=== PATIENT | female | born 1955 | race Caucasian/White ===

== ENCOUNTER → 2017-09-22 | Outpatient (CLI) | payer OTHER ==
--- NOTE | 2017-09-22 17:26 | RAD ---
DATE: 09/22/2017 EXAM: MAMMO [place] SCREENING BILATERAL HISTORY: Screening Mammogram COMPARISON: Screening mammogram 2 03/13/2016, 10/03/2014, 10/01/2013 This study was interpreted with the benefit of Computerized Aided Detection (CAD). The breast parenchyma is heterogeneously dense, which could reduce sensitivity of mammography. Breast parenchyma level C. FINDINGS: Bilateral digital 2-D and 3-D tomosynthesis CC and MLO views. Asymmetry in the retroareolar right breast only seen on the MLO view. No suspicious mass, calcification or architectural distortion in the left breast. Impression: Retroareolar right breast asymmetry only seen on MLO view. Spot compression MLO and fall field ML views are recommended and possible same-day ultrasound, if needed. BI-RADS CATEGORY: 0 INCOMPLETE: NEEDS ADDITIONAL IMAGING EVALUATION AND/OR PRIOR MAMMOGRAMS FOR COMPARISON. RECOMMENDED FOLLOW-UP: ADD ADDITIONAL IMAGING PQRS compliance statement: Patient information was entered into a reminder system with a target due date for the next mammogram. Mammography is a sensitive method for finding small breast cancers, but it does not detect them all and is not a substitute for careful clinical examination. A negative mammogram does not negate a clinically suspicious finding and should not result in delay in biopsying a clinically suspicious abnormality. "Our facility is accredited by the [employer] Mammography [employer]."
== END | disposition home or self-care (01) ==
LOC: MAMMO 14:11
PROVIDERS: ATTEND Physician Assistant Medical
DX: Z12.31 Encounter for screening mammogram for malignant neoplasm of breast (principal)
CPT/HCPCS: 77063; 77067

== ENCOUNTER → 2017-10-01 | Outpatient (CLI) | payer OTHER ==
--- NOTE | 2017-10-01 13:59 | RAD ---
EXAM: DIGITAL DIAGNOSTIC RT HISTORY: Abnormal screening 3-D mammogram. COMPARISON: 3-D mammogram 09/22/2017 and 10/18/2015. Bilateral 2-D mammogram 10/03/2014. This study was interpreted with the benefit of Computerized Aided Detection (CAD). FINDINGS: Spot compression view of the right breast in the MLO projection was obtained. True lateral view of the right breast was obtained. No persistent suspicious abnormality is seen. Breast parenchyma appears compressible. The appearance of the breast is similar to previous mammograms. IMPRESSION: No persistent abnormality. Recommend return to annual screening. BI-RADS CATEGORY: 1 NEGATIVE RECOMMENDED FOLLOW-UP: 12M 12 MONTH FOLLOW-UP PQRS compliance statement: Patient information was entered into a reminder system with a target due date for the next mammogram. Mammography is a sensitive method for finding small breast cancers, but it does not detect them all and is not a substitute for careful clinical examination. A negative mammogram does not negate a clinically suspicious finding and should not result in delay in biopsying a clinically suspicious abnormality. "Our facility is accredited by the [employer] Mammography [employer]."
== END | disposition home or self-care (01) ==
LOC: MAMMO 13:14
PROVIDERS: ATTEND Physician Assistant Medical
DX: R92.8 Other abnormal and inconclusive findings on diagnostic imaging of breast (principal)
CPT/HCPCS: 77065

== ENCOUNTER → 2021-02-05 | Outpatient (CLI) | payer OTHER ==
--- NOTE | 2021-02-05 09:10 | RAD ---
EXAM: 1. CERVICAL SPINE 5 VIEWS. 2. RIGHT SHOULDER 3 VIEWS. HISTORY: Neck and right shoulder pain. COMPARISON: None. FINDINGS: Cervical alignment is maintained. No fractures are identified. There is no prevertebral sof t tissue swelling. Degenerative disc disease is moderate from C5 through C7. The left neural foramina are not well profiled. Neural foraminal stenosis appears to be moderate from C3 through C6. On the right, the foramina are well profiled. There is only mild foraminal narrowing at C3-4 and C6-7. No fractures are identified at the right shoulder. The glenohumeral joint space is not profiled, but appears maintained. Glenohumeral alignment is normal. There are mild degenerative changes at the acro mial clavicular joint for patient age. IMPRESSION: 1. Moderate degenerative disc disease from C5 through C7. 2. The neural foramina are not well profiled, but there appears to be moderate neural foraminal steno sis on the left from C3 through C6. It is mild on the right at C3-4 and C6-7. 3. Mild right acromioclavicular osteoarthritis. Electronically signed by: Bobby Fatima MD (02/05/2021 9:07 AM) [id number]
== END ==
LOC: RAD 08:37
PROVIDERS: ATTEND Physician Assistant Medical
DX: M50.30 Other cervical disc degeneration, unspecified cervical region (principal); M19.011 Primary osteoarthritis, right shoulder
CPT/HCPCS: 72050; 73030

== ENCOUNTER → 2021-04-25 | Outpatient (CLI) | payer OTHER ==
--- NOTE | 2021-04-25 12:22 | RAD ---
EXAM: Left knee, 3 views. HISTORY: Pain. COMPARISON: None. FINDINGS: 3 views of the left knee are obtained. There is mild medial compartment joint space narrowi ng and spurring. There is no fracture, dislocation or subluxation. There is no joint effusion. IMPRESSION: Mild medial compartment osteoarthritis of the left knee. Electronically signed by: Nayeli Salgado MD (04/25/2021 12:19 PM) [id number]
== END ==
LOC: RAD 12:05
PROVIDERS: ATTEND Physician Assistant Medical
DX: M17.12 Unilateral primary osteoarthritis, left knee (principal); M25.862 Other specified joint disorders, left knee; M76.892 Other specified enthesopathies of left lower limb, excluding foot
CPT/HCPCS: 73562